=== PATIENT | male | born 2000 | race Caucasian/White ===

== ENCOUNTER 2023-03-05 14:19 | Emergency (ER) | payer OTHER ==
[2023-03-05] MEDS ORDERED: Acetaminophen 325 MG Tab PO ONE (14:46)
== END 2023-03-05 15:55 | disposition home or self-care (01) ==
LOC: MW.ED 14:19
DX: S06.0X0A Concussion without loss of consciousness, initial encounter (principal); F17.210 Nicotine dependence, cigarettes, uncomplicated; V89.2XXA Person injured in unspecified motor-vehicle accident, traffic, initial encounter; Y92.410 Unspecified street and highway as the place of occurrence of the external cause
CPT/HCPCS: 70450; 99284; A9270; 99283

== ENCOUNTER 2024-04-18 23:55 | Emergency (ER) | payer SELFPAY ==
[2024-04-19] MEDS: Sodium Chloride 0.9% 1,000 ML IV SCH (00:27)
[2024-04-19] MEDS: Metoclopramide 10 MG/2 ML SDV IVPUSH ONE (00:28)
[2024-04-19] MEDS: Ketorolac 30 MG/ML SDV IVPUSH ONE (00:28)
[2024-04-19] MEDS: diphenhydrAMINE 50 MG/ML SDV IVPUSH ONE (00:28)
== END 2024-04-19 01:50 | disposition home or self-care (01) ==
LOC: MW.ED 23:55
DX: R51.9 Headache, unspecified (principal); Z79.899 Other long term (current) drug therapy
CPT/HCPCS: 70450; 96374; 96375; 99284; J1200; J1885; J2765; J7030

== ENCOUNTER 2024-04-29 23:34 | Emergency (ER) | payer SELFPAY ==
[2024-04-30 00:30] LABS: BASOPHILS ABSOLUTE AUTO 0.04 K/uL (0.00-0.20); BASOPHILS PERCENT AUTO 0.5 % (0.0-1.0); EOSINOPHILS ABSOLUTE AUTO 0.17 K/uL (0.00-0.45); HEMATOCRIT 40.1 % (42.0-52.0); HEMOGLOBIN 13.9 g/dL (14.0-18.0); IMMATURE GRAN ABSOLUTE AUTO 0.01 K/uL (0.00-0.05); IMMATURE GRAN PERCENT AUTO 0.1 % (0.0-0.4); LYMPHOCYTES ABSOLUTE AUTO 2.71 K/uL (1.00-4.80); LYMPHOCYTES PERCENT AUTO 32.2 % (24.0-44.0); MEAN CORPUSCULAR HEMOGLOBIN 28.4 pg (28.0-32.0); MEAN CORPUSCULAR HGB CONC 34.7 g/dL (32.0-36.0); MEAN CORPUSCULAR VOLUME 81.8 fL (83.0-99.0); MEAN PLATELET VOLUME 10.1 fL (9.4-12.4); MONOCYTES ABSOLUTE AUTO 0.62 K/uL (0.00-0.80); MONOCYTES PERCENT AUTO 7.4 % (0.0-8.0); NEUTROPHILS ABSOLUTE AUTO 4.87 K/uL (1.80-7.70); NEUTROPHILS PERCENT AUTO 57.8 % (41.0-71.0); PLATELET COUNT,PLT 245 K/uL (150-400); WHITE BLOOD CELL COUNT,WBC 8.42 K/uL (3.9-11.3)
[2024-04-30 00:55] LABS: A/G RATIO 1.2 (0.9-1.6); ALBUMIN 4.1 g/dL (3.4-5.0); BILIRUBIN TOTAL 0.4 mg/dL (0.2-1.0); CALCIUM 9.3 mg/dL (8.5-10.1); CARBON DIOXIDE,CO2 27.2 mmol/L (21.0-32.0); CREATININE 1.1 mg/dL (0.8-1.3); EST CRCL DRUG DOSING (CG) 109.68 mL/min; POTASSIUM,K 3.9 mmol/L (3.5-5.1); PROTEIN TOTAL,TP 7.6 g/dL (6.4-8.2)
[2024-04-30] MEDS ORDERED: Ondansetron 4 MG Tab PO ONE (01:15)
== END 2024-04-30 01:36 | disposition home or self-care (01) ==
LOC: MW.ED 23:34
DX: R07.9 Chest pain, unspecified (principal); I10 Essential (primary) hypertension; F12.90 Cannabis use, unspecified, uncomplicated; Z75.8 Other problems related to medical facilities and other health care
CPT/HCPCS: 36415; 71046; 71046-26; 80053; 84484; 85025; 93005; 93010; 99285

== ENCOUNTER 2024-05-02 21:21 | Emergency (ER) | payer SELFPAY ==
[2024-05-02] MEDS: Ketorolac 30 MG/ML SDV IM ONE (23:50)
[2024-05-02] MEDS: Acetaminophen 500 MG Tab PO ONE (23:51)
[2024-05-02] MEDS: Bupivacaine 0.5% 10 ML SDV INFILT ONE (23:55)
== END 2024-05-03 00:43 | disposition home or self-care (01) ==
LOC: MW.ED 21:21
DX: K02.9 Dental caries, unspecified (principal); F17.210 Nicotine dependence, cigarettes, uncomplicated; Z79.1 Long term (current) use of non-steroidal anti-inflammatories (NSAID); Z79.2 Long term (current) use of antibiotics; Z79.899 Other long term (current) drug therapy
CPT/HCPCS: 64400; 96372; 99283; A9270; J0665; J1885

== ENCOUNTER 2024-05-18 19:50 | Emergency (ER) | payer SELFPAY ==
[2024-05-18] MEDS: Ketorolac 30 MG/ML SDV IM ONE (21:17)
== END 2024-05-18 21:24 | disposition home or self-care (01) ==
LOC: MW.ED 19:50
DX: R51.9 Headache, unspecified (principal); K08.89 Other specified disorders of teeth and supporting structures
CPT/HCPCS: 96372; 99282; J1885

== ENCOUNTER 2024-05-27 10:11 | Emergency (ER) | payer SELFPAY ==
[2024-05-27] MEDS: Erythromycin Base 0.5% Ophth Oint 1 GM Tube EYERT ONE (11:14)
== END 2024-05-27 11:17 | disposition home or self-care (01) ==
LOC: MW.ED 10:11
DX: S05.01XA Injury of conjunctiva and corneal abrasion without foreign body, right eye, initial encounter (principal); Z79.899 Other long term (current) drug therapy; X58.XXXA Exposure to other specified factors, initial encounter; Y99.0 Civilian activity done for income or pay
CPT/HCPCS: 99283; A9270

== ENCOUNTER 2024-10-11 04:49 | Emergency (ER) | payer SELFPAY ==
[2024-10-11] MEDS ORDERED: Sodium Chloride 0.9% 20 ML SDV IV PRN (05:17)
[2024-10-11] MEDS ORDERED: Sodium Chloride 0.9% 10 ML Syringe FLUSH PRN (05:17)
[2024-10-11] MEDS ORDERED: Sodium Chloride 0.9% 2.5 ML Syringe FLUSH PRN (05:17)
[2024-10-11] MEDS: Ketorolac 30 MG/ML SDV IVPUSH ONE (05:46)
[2024-10-11 06:03] LABS: BASOPHILS ABSOLUTE AUTO 0.04 K/uL (0.00-0.20); BASOPHILS PERCENT AUTO 0.5 % (0.0-1.0); EOSINOPHILS ABSOLUTE AUTO 0.17 K/uL (0.00-0.45); EOSINOPHILS PERCENT AUTO 1.9 % (0.0-6.0); HEMATOCRIT 39.1 % (42.0-52.0); HEMOGLOBIN 13.8 g/dL (14.0-18.0); IMMATURE GRAN ABSOLUTE AUTO 0.02 K/uL (0.00-0.05); IMMATURE GRAN PERCENT AUTO 0.2 % (0.0-0.4); LYMPHOCYTES ABSOLUTE AUTO 1.88 K/uL (1.00-4.80); LYMPHOCYTES PERCENT AUTO 21.5 % (24.0-44.0); MEAN CORPUSCULAR HEMOGLOBIN 28.9 pg (28.0-32.0); MEAN CORPUSCULAR HGB CONC 35.3 g/dL (32.0-36.0); MEAN CORPUSCULAR VOLUME 81.8 fL (83.0-99.0); MEAN PLATELET VOLUME 10.1 fL (9.4-12.4); MONOCYTES ABSOLUTE AUTO 0.29 K/uL (0.00-0.80); MONOCYTES PERCENT AUTO 3.3 % (0.0-8.0); NEUTROPHILS ABSOLUTE AUTO 6.33 K/uL (1.80-7.70); NEUTROPHILS PERCENT AUTO 72.6 % (41.0-71.0); PLATELET COUNT,PLT 228 K/uL (150-400); RED BLOOD CELL COUNT 4.78 M/uL (4.52-5.90); WHITE BLOOD CELL COUNT,WBC 8.73 K/uL (3.9-11.3)
[2024-10-11 06:30] LABS: A/G RATIO 1.2 (0.9-1.6); BILIRUBIN TOTAL 0.3 mg/dL (0.2-1.0); CALCIUM 8.8 mg/dL (8.5-10.1); CARBON DIOXIDE,CO2 26.1 mmol/L (21.0-32.0); CREATININE 1.2 mg/dL (0.8-1.3); EST CRCL DRUG DOSING (CG) 99.7 mL/min; PROTEIN TOTAL,TP 7.4 g/dL (6.4-8.2)
== END 2024-10-11 07:53 | disposition home or self-care (01) ==
LOC: MW.ED 04:49
DX: K08.89 Other specified disorders of teeth and supporting structures (principal); R07.9 Chest pain, unspecified; Z79.899 Other long term (current) drug therapy
CPT/HCPCS: 36415; 71045; 80053; 84484; 85025; 87428; 93005; 96374; 99285; J1885; 93010; 99284